=== PATIENT | male | born 1970 | race African-American/Black ===

== ENCOUNTER 2025-03-03 09:10 | Outpatient (REF) | payer MEDICAID, SELFPAY ==
--- OUTSIDE RECORDS SUMMARY | 2025-02-27 09:30 | XMS_ITS | Encounter Summary ---
Author Organization [employer] Address [address] [place] [id number] Care Team Providers Care Medical Claims Processor Name Role Phone Buddy Damon MD Primary Care Prov ider Reason for Referral * Consultation (Routine) - Closed Specialty Diagnoses / Procedures Referred By Contac t Referred To Contact Behavioral Health Diagnoses Current mild episode of major depressive disorder without prior episode (CMS/HCC) Procedures Referral to Behavioral Health Buddy Damon MD [address] [place] [id number] Phone: tel: fax: Referral ID Status Reason Start Date Expiration Date V isits Requested Visits Authorized [id number] Closed Specialty Services Required 02/27/2025 02/27/2026 1 1 Encounter Details Date Type Department Care Team (Late st Contact Info) Description 02/27/2025 9:30 AM EST Telemedicine [facility] MED & PEDS [address] [place] [address] Buddy Damon MD [address] [place] [address] Screening for colon cancer (Primary Dx); Current mild episode of major depressive disorder without prior episode (CMS/HCC) Social History Tobacco Use Types Packs/Day Years Used Date Smoking Tobacco: Never Smokeless Tobacco: Never Alcohol Use Standard Drinks/Week Comments Yes 0 (1 standard drink = 0.6 oz pur e alcohol) socially Depression Answer Date Recorded Patient Health Questionnaire-9 Score 7 02/27/2025 Patient Health Questionnaire-9 Score 7 02/27/2025 Last PHQ-9: Questionnaire Data Not on file 1 04/29/2024 Depression Answer Date Recorded Patient Health Questionnaire-2 Score 6 02/27/2025 Sex and Gender Information Value Date Recorded Sex Assigned at Male 02/17/2022 10:37 AM EDT Legal Sex Male 10:37 AM EDT Gender Identity Male 08/12/2023 10:50 AM EDT Sexual Orientation Straight 09/03/2023 3: 22 PM EDT documented as of this encounter Functional Status * Over the past 2 weeks, how often have you been bothered by any of the following problems? Question Answer Date of Assessment Author Patient Health Questionnaire-2 Score 6 02/18 9:12 AM Marifer Man [place] * Little interest or pleasure in doing things Answer Date of Assessment Author Nearly every day 02/27/2025 9:12 AM Cheryl Man [place] * Feeling down, depressed, or hopeless Answer Date of Assessment Author Nearly every day 02/27/2025 9:12 AM Cheryl Man [place] * Trouble falling or staying asleep, or sleeping too much Answer Date of Assessment Author Several days 02/27/2025 9:12 AM Tammy Man [place] * Feeling tired or having little energy Answer Date of Assessment Author Not at all 02/27/2025 9:12 AM Tammy Man [place] * Poor appetite or overeating Answer Date of Assessment Author Not at all 02/27/2025 9:12 AM Tammy Man [place] * Feeling bad about yourself - or that you are a failure or have let yourself or your family down Answer Date of Assessment Author Not at all 02/27/2025 9:12 AM Tammy Man [place] * Trouble concentrating on things, such as reading the newspaper or watching television Answer Date of Assessment Author Not at all 02/27/2025 9:12 AM Tammy Man [place] * Moving or speaking so slowly that other people could have noticed? Or the opposite - being so fidgety or restless that you have been moving around a lot more than usual. Answer Date of Assessment Author Not at all 02/27/2025 9:12 AM Tammy Man [place] * Thoughts that you would be better off or hurting yourself in some way Answer Date of Assessment Author Not at all 02/27/2025 9:12 AM Tammy Man [place] * Patient Health Questionnaire-9 Score Answer Date of Assessment Author 7 02/27/2025 9:12 AM Tammy Man [place] * How difficult have these problems made it for you to do your work, take care of things at home, or get along with other people? Answer Date of Assessment Author Somewhat difficult 02/27/2025 9:12 AM Marifer Man [place] documented as of this encounter Progress Notes * Buddy Baires MD - 02/27/2025 9:30 AM EST Subjective Patient ID: Ronen Landers is a 54 y.o. male who presents for No chief complaint on file.. Depression Visit Type: initial Onset of symptoms: 1 to 6 months ago Patient presents with the following symptoms: decreased concentration, depressed mood, excessive worry and feelings of hopelessness. Patient is not experiencing: suicidal ideas, suicidal planning and thoughts of . Review of Systems Psychiatric/Behavioral: Positive for decreased concentration and depression. Negative for suicidal ideas. Objective Physical Exam Neurological: General: No focal deficit present. Mental Status: He is oriented to person, place, and time. Psychiatric: Mood and Affect: Mood normal. Behavior: Behavior normal. Assessment/Plan Problem List Items Addressed This Visit None Visit Diagnoses Screening for colon cancer - Primary Relevant Orders Cologuard?? colon cancer screening Current mild episode of major depressive disorder without prior episode (CMS/HCC) Relevant Orders CBC auto differential Comprehensive Metabolic Panel Lipid Panel, Standard TSH W/Reflex to FT4 Hepatitis C Antibody with Reflex to HCV, RNA, Quantitative, Real-Time PCR HIV-1/2 Antigen and Antibodies, Fourth Generation, with Reflexes Referral to Behavioral Health documented in this encounter Plan of Treatment Scheduled Orders Name Type Priority Associated Diagnoses Orde r Schedule Cologuard colon cancer screening Lab Routine Screening for colon cancer Ordered: 02/27/2025 CBC auto differential Lab Routine Current mild episode of major depressive disorder without prior episode (CMS/HCC) Expected: 02/27/2025 (Approximate), Expires: 02/27/2026 Comprehensive Metabolic Panel Lab Routine Current mild episode of major depressive disorder without prior episode (CMS/HCC) Expected: 02/27/2025 (Approximate), Expires: 02/27/2026 Lipid Panel, Standard Lab Routine Current mild episode of major depressive disorder without prior episode (CMS/HCC) Expected: 02/27/2025 (Approximate), Expires: 02/27/2026 TSH W/Reflex to FT4 Lab Routine Current mild episode of major depressive disorder without prior episode (CMS/HCC) Expected: 02/27/2025 (Approximate), Expires: 02/27/2026 Hepatitis C Antibody with Reflex to HCV, RNA, Quantitative, Real-Time PCR Lab Routine Current mild episode of major depressive disorder without prior episode (CMS/HCC) Expected: 02/27/2025, Expires: 02/27/2026 HIV-1/2 Antigen and Antibodies, Fourth Generation, with Reflexes Lab Routine Current mild episode of major depressive disorder without prior episode (CMS/HCC) Expected: 02/27/2025 (Approximate), Expires: 02/27/2026 documented as of this encounter Visit Diagnoses Diagnosis Screening for colon cancer- Primary Special screening for malignant neoplasms, colon Current mild episode of major depressive disorder without prior episode (CMS/HCC) documented in this encounter Additional Health Concerns Assessment Noted Time PHQ-9 Depression Total Score: 7 02/28/20 25 9:12 AM EST documented as of this encounter Care Teams Medical Claims Processor Relationship Specialty Start Date End Date Buddy Damon MD [address] [place] [id number] PCP - General Internal Medicine 10/19/23 documented as of this encounter
--- OUTSIDE RECORDS SUMMARY | 2025-03-03 09:51 | XMS_ITS | Encounter Summary ---
Author Organization [employer] Address [address] [facility] [address] [place] [address] Care Team Providers Care Engraver Letter Name Role Phone Buddy Damon MD Primary Care Prov ider Encounter Details Date Type Department Care Team (Latest Contact Info) Description 02/27/2025 Travel Social History Tobacco Use Types Packs/Day Years [...] Man [place] documented as of this encounter Plan of Treatment Not on file documented as of this encounter Visit Diagnoses Not on filedocumented in this encounter Additional Health Concerns Assessment Noted Time PHQ-9 Depression Total Score: 7 02/28/20 25 9:12 AM EST documented as of this encounter Care Teams Engraver Letter Relationship Specialty Start Date End Date Buddy Damon MD [address] [place] [phone] PCP - General Internal Medicine 10/19/23 documented as of this encounter
--- OUTSIDE RECORDS SUMMARY | 2025-03-03 09:51 | XMS_ITS | Encounter Summary ---
Author Organization [employer] Address [address] [place] [address] [address] [place] [address] Care Team Providers Care Dent Remover Name Role Phone Buddy Damon MD Primary Care Prov ider Reason for Visit * Reason Onset Date Comments Appointment Request 11/02/2023 Encounter Details Date Type Department Care Team ([facility] st Contact Info) Description 11/02/2023 Telephone [facility] MEDICINE [address] [place] [address] Buddy Damon MD [address] [place], [place] [phone] Appointment Request Social History Tobacco Use Types Packs/Day Years Used Date Smoking Tobacco: Never Smokeless Tobacco: Never Alcohol Use Standard Drinks/Week Comments Yes 0 (1 standard drink = 0.6 oz pur e alcohol) socially Sex and Gender Information Value Date Recorded Sex Assigned at Male 02/17/2022 10:37 AM EDT Legal Sex Male 10:37 AM EDT Gender Identity Male 08/12/2023 10:50 AM EDT Sexual Orientation Straight 09/03/2023 3: 22 PM EDT documented as of this encounter Miscellaneous Notes * Telephone Encounter - Myra Zamorano - 11/02/2023 8:48 AM EDT Tc from pt requesting derm appt, referred by dr Bonilla. documented in this encounter Plan of Treatment Not on file documented as of this encounter Visit Diagnoses Not on filedocumented in this encounter Care Teams Dent Remover Relationship Specialty Start Date End Date Buddy Damon MD [address] [place] [address] PCP - General Internal Medicine 10/19/23 documented as of this encounter
--- OUTSIDE RECORDS SUMMARY | 2025-03-03 09:51 | XMS_ITS | Clinical Summary ---
Author Organization [employer] Address [address] [facility] [address] [place] [address] Care Team Providers Care Record Cutter Name Role Phone Buddy Damon MD Primary Care Prov ider Medications * This document contains information received from the source organization and may not represent a complete record from that organization. No known medications Active Problems Problem Noted Date Diagnosed Date Encounter for medical examination to establish c are 10/16/2023 Assessment & Plan (10/16/2023 11:37 AM EDT): Patient has not visited er in the past 2 years Never hospitalized Pmh:- Psh:- All:- Meds:- Cyst, dermoid, face 10/16/2023 Assessment & Plan (10/16/2023 11:42 AM EDT): Patient refers having multiple facial cyst, will refer to dermatology for evaluation Encounters * This document contains information received from the source organization and may not represent a complete record from that organization. Date Type Department Care Team Description 02/27/2025 9:30 AM EST Telemedicine [facility] MED & PEDS [address] [place] [address] Buddy Damon MD Screening for colon cancer (Primary Dx); Current mild episode of major depressive disorder without prior episode (CMS/HCC) 02/27/2025 Travel 02/24/2025 Travel 02/24/2025 Telephone [facility] MED & PEDS [address] [place] [address] Buddy Damon MD chart prep 02/23/2025 Travel 02/22/2025 Telephone [facility] MED & PEDS [address] [place] [address] Buddy Damon MD chart prep from Last 3 Months Family History Medical History Relation Name Comments No Known Problems Father No Known Problems Mother Breast cancer Mother's Sister Relation Name Status Comments Father Mother Mother's Sister Social History Tobacco Use Types Packs/Day Years Used Date Smoking Tobacco: Never Smokeless Tobacco: Never Tobacco Cessation:Counseling Given: Not Answered Alcohol Use Standard Drinks/Week Comments Yes 0 [...] Orientation Straight 09/03/2023 3: 22 PM EDT Last Filed Vital Signs Vital Sign Reading Time Taken Comments Blood Pressure 102/67 12/01/2023 10:20 AM EDT Pulse 52 12/01/2023 10:20 AM EDT Temperature 36.3 C (97.3 F) 12/01/2023 10:20 AM EDT Respiratory Rate 19 12/01/2023 10:20 AM EDT Oxygen Saturation 99% 12/01/2023 10:20 AM EDT Inhaled Oxygen Concentration - - Weight 82.6 kg (182 lb) 12/01/2023 10:20 AM EDT Height - - Body Mass Index - - Plan of Treatment Health Maintenance Due Date Last Done Comments CT Colonography 1972 Colonoscopy 1972 Colorectal Cancer Screening 1972 FIT DNA/Cologuard 1972 FIT 1972 FOBT 1972 HIV Screening 1972 Lipid Panel 1972 SDOH Screening 1972 Sigmoidoscopy 1972 Family Planning (PISQ) 07/16/1987 Hepatitis C Screening 1990 DTaP/Tdap/Td Vaccines (1 - Tdap) 07/16/1991 Hepatitis B Vaccines (1 of 3 - 19+ 3-dose series) 07/16/1991 Pneumococcal Vaccine: 50+ Years (1 of 1 - PCV) 2022 Zoster Vaccines (1 of 2) 2022 Tobacco Screening 11/30/2024 12/01/2023 COVID-19 Vaccine (1 - 2024-2 6 season) 2024 Influenza Vaccine (#1) 2024 Disability Screening 02/23/2026 02/23/2025 Alcohol/Substance Use Screening 02/27/2026 02/27/2025 Depression Screening 02/27/2026 02/27/2025, 02/27/2025 RSV Patients and Patients Aged 60 years or older (1 - 1-dose 75+ series) 07/16/2047 HIB Vaccines Aged Out No longer eligi ble based on patient's age to complete this topic HPV Vaccines Aged Out No longer eligi ble based on patient's age to complete this topic Hepatitis A Vaccines Aged Out No long er eligible based on patient's age to complete this topic IPV Vaccines Aged Out No longer eligi ble based on patient's age to complete this topic Meningococcal B Vaccine Aged Out No l onger eligible based on patient's age to complete this topic Meningococcal Vaccine Aged Out No lloyd charbel eligible based on patient's age to complete this topic RSV under 20 months Aged Out No longe r eligible based on patient's age to complete this topic Rotavirus Vaccines Aged Out No longer eligible based on patient's age to complete this topic Insurance [facility] C3 Care Teams Record Cutter Relationship Specialty Start Date End Date Buddy Damon MD [address] [place] [id number] PCP - General Internal Medicine 10/19/23
[2025-03-03 14:15] LABS: MANUAL DIFF FLAG NO
[2025-03-03 14:21] LABS: Hematocrit 46.1 % (42.0-52.0); Hemoglobin 15.2 g/dl (14.0-18.0); Imm Gran Abs Auto 0.02 X10*3/uL (0.00-0.03); Imm Gran Pct Auto 0.2 % (0.0-0.4); Lymphocytes Absolute Auto 2.9 X10*3/uL (1.2-4.9); Mean Corpuscular HGB Conc 33.0 g/dl (31.0-36.0); Mean Corpuscular Hemoglobin 32.1 pg (27.0-33.0); Mean Corpuscular Volume 97.3 fL (80.0-98.0); NRBC Abs Auto 0.000 X10*3/uL (0.0-0.012); NRBC Pct Auto 0.0 /100WBC (0.0-0.2); Platelet Count 246 X10*3/uL (160-400); Red Blood Count 4.74 X10*6/uL (4.60-5.80); White Blood Count 9.2 X10*3/uL (4.8-10.8)
[2025-03-03 14:44] LABS: Alanine Aminotransferase 8 U/L (0-40); Albumin Level 3.9 g/dL (3.5-5.0); Alkaline Phosphatase 88 U/L (39-117); Anion Gap 10 (12-20); Aspartate Amino Transferase 26 U/L (5-37); Blood Urea Nitrogen 8 mg/dL (9-16); Calcium 9.2 mg/dL (8.4-10.2); Carbon Dioxide 27 mmol/L (22-29); Chloride 107 mmol/L (96-108); Cholesterol 197 mg/dL (<200); Estimated Glomerular Filt Rate > 60; HDL Cholesterol 77 mg/dL (>40); Potassium 4.0 mmol/L (3.3-5.1); Sodium 140 mmol/L (135-145); Total Protein 6.6 g/dL (6.5-8.0); Triglycerides 63 mg/dL (<150)
[2025-03-04 08:26] LABS: HIV Num 1 0.06 S/CO (0.00-0.99); ~HepC Num1 0.13 S/CO (0.00-0.79); ~Hepatitis C Antibody Nonreactive (Nonreactive)
== END 2025-03-03 09:11 | disposition home or self-care (01) ==
LOC: HO.CHCLDS 09:10
PROVIDERS: Visit Provider Internal Medicine
DX: Z11.4 Encounter for screening for human immunodeficiency virus [HIV] (principal); Z20.6 Contact with and (suspected) exposure to human immunodeficiency virus [HIV]; Z11.59 Encounter for screening for other viral diseases; Z20.5 Contact with and (suspected) exposure to viral hepatitis; F32.0 Major depressive disorder, single episode, mild
CPT/HCPCS: 36415; 80053; 80061; 84443; 85025; 86803; 87389